=== PATIENT | female | born 1965 | race Caucasian/White ===

== ENCOUNTER 2016-06-07 21:03 | Emergency (ER) | payer SELFPAY ==
[~2016-06-07] VITALS: Ht 157.5 cm; Wt 54.0 kg
[2016-06-07] MEDS ORDERED: KETOROLAC 60MG/2ML VIAL IM ONE (22:15)
[2016-06-08 00:25] VITALS: BP 109/75
== END 2016-06-08 00:30 | disposition home or self-care (01) ==
LOC: ER 21:05
DX: S39.012A Strain of muscle, fascia and tendon of lower back, initial encounter (principal); S63.502A Unspecified sprain of left wrist, initial encounter; S70.01XA Contusion of right hip, initial encounter; E11.9 Type 2 diabetes mellitus without complications; W01.0XXA Fall on same level from slipping, tripping and stumbling without subsequent striking against object, initial encounter; Y93.89 Activity, other specified; Y92.512 Supermarket, store or market as the place of occurrence of the external cause
CPT/HCPCS: 72100; 72170; 73110; 81025; 96372; 99284; J1885